=== PATIENT | female | born 1980 | race Caucasian/White ===

== ENCOUNTER → 2020-08-05 | Outpatient (CLI) | payer BC | END | disposition home or self-care (01) | LOC: LAB 08:32 | PROVIDERS: ATTEND Specialist | DX: Z01.812 Encounter for preprocedural laboratory examination (principal); Z20.822 Contact with and (suspected) exposure to COVID-19 | CPT/HCPCS: C9803; U0003 ==

== ENCOUNTER 2020-08-08 05:42 | Day surgery (SDC) | payer BC ==
[~2020-08-08] VITALS: Ht 154.9 cm; Wt 68.9 kg
[2020-08-08 06:00] VITALS: BP 125/81
--- NOTE | 2020-08-08 06:00 | NUR ---
MS RN NOTES PT ARRIVED TO UNIT AMBULATING WITH ASSISTANCE OF CRUTCHES. PT FOR SURGERY TODAY. PT ALERT AND ORIENTED X4 NO PAIN OR DISCOMFORT NOTED AT THIS TIME. PT ON ROOM AIR TOLERATING WELL. VS STABLE AT THIS TIME.PT ORIENTED TO ROOM AND UNIT. PT IV STARTED 18 G LEFT AC INTACT PATENT. ALL NECESSARY PREPARATIONS DONE FOR SURGERY. ALL NURSING NEEDS MET AT THIS TIME. PT PICKED UP FOR SURGERY. WILL ENDORSE CARE TO DAY SHIFT NURSE.
[2020-08-08] MEDS ORDERED: BUPIVACAINE 0.5 % PF 150 MG/30 ML VIAL ONE (06:38)
[2020-08-08] MEDS ORDERED: ANESTHESIA TRAY IN PYXIS 1 EA TRAY MC ONE (06:38)
[2020-08-08] MEDS ORDERED: HYDROMORPHONE INJ 2 MG/ML DISP.SYRIN ONE (07:03)
--- NOTE | 2020-08-08 07:31 | NUR ---
PATIENT IS CURRENTLY IS SURGERY, WILL EVALUATE WHEN PATIENT RETURNS.
[2020-08-08] MEDS ORDERED: HYDROMORPHONE 1 MG/1 ML DISP.SYRIN ONE (08:21)
[2020-08-08] MEDS ORDERED: oxyCODONE IR immediate release 5 MG PO PRN (09:00)
--- NOTE | 2020-08-08 09:30 | NUR ---
RN NOTES RECEIVED PATIENT BACK FROM SURGERY. PATIENT IS A/O X 4. BREATHING EVENLY AND NONLABORED ON ROOM AIR. PATIENTS VITALS ARE BP 122/79 HR 75, O2 SAT 100 AND TEMP 97.8. PATIENT IS NOT COMPLAINING OF PAIN. IV SITE LAC # 18 GAUGE PATENT AND INTACT. PATIENT HAS DISCHARGE ORDERS AND NWB TO LLE. WILL CONTINUE TO MONITOR.
--- NOTE | 2020-08-08 09:58 | NUR ---
ENGINE BOSS NOTES RECEIVED ORDER FOR DISCHARGE. PATIENT IS A/O X4. BREATHING EVENLY AND NONLABORED ON ROOM AIR. NO SIGNS OF DISTRESS NOTED. PATIENT DOES NOT COMPLAIN OF PAIN AT THIS TIME. PATIENT WAS GIVEN DISCHARGE INSTRUCTIONS. PATIENT VERBALIZED UNDERSTANDING. ID BAND AND IV WAS REMOVED. PATIENT LEFT VIA PRIVATE CAR IN STABLE CONDITION.
== END 2020-08-08 13:18 | disposition home or self-care (01) ==
LOC: DS 05:42 → UNDOADMIN 05:43 → MED 05:43 → UNDODISIN 09:55 → DS 13:18
PROVIDERS: ATTEND Specialist
DX: S82.402A Unspecified fracture of shaft of left fibula, initial encounter for closed fracture (principal); X58.XXXA Exposure to other specified factors, initial encounter; Y93.89 Activity, other specified; Y92.89 Other specified places as the place of occurrence of the external cause; Y99.8 Other external cause status
CPT/HCPCS: 27792; 27829; 73600; 84703; 87081; A4217; A6402; C1713 ×5; J0690; J1100; J1170 ×2; J1885; J2405; J2704; J3490 ×2